=== PATIENT | female | born 1980 | race Caucasian/White ===

== ENCOUNTER 2018-07-09 19:07 | Inpatient (IN) ==
[2018-07-09 20:36] LABS: Hematocrit 31.5 % (35.0-46.0); Hemoglobin 10.4 gm/dL (11.6-15.3); Mean Corpuscular HGB Conc 32.9 % (32.0-36.0); Mean Corpuscular Hemoglobin 27.9 pg (27.0-34.0); Mean Corpuscular Volume 84.9 fL (80.0-100.0); Mean Platelet Volume 11.3 fL (7.0-11.0); Platelet Count 148 th/mm3 (150-450); Red Blood Count 3.72 mil/mm3 (4.00-5.30); Red Cell Distribution Width 14.4 % (11.6-17.2); White Blood Count 13.2 th/mm3 (4.0-11.0)
[2018-07-09 20:46] LABS: Protein/Creatinine Ratio,Urine 0.17 (0.00-0.14)
[2018-07-09 20:50] LABS: Alanine Aminotransferase 11 U/L (10-53); Albumin 2.4 g/dL (3.4-5.0); Anion Gap 11 meq/L (5-15); Aspartate Aminotransferase 13 U/L (15-37); Calcium 8.7 mg/dL (8.5-10.1); Carbon Dioxide 23.9 meq/L (21.0-32.0); Chloride 105 meq/L (98-107); Glomerular Filtration Rate Greater Than 89 mL/min (>89); Glucose,Random 84 mg/dL (74-106); Potassium 3.9 meq/L (3.5-5.1); Sodium 140 meq/L (136-145); Uric Acid 4.9 mg/dl (2.6-6.0)
[2018-07-09 20:53] LABS: Alkaline Phosphatase 102 U/L (45-117); Blood Urea Nitrogen 10 mg/dL (7-18); Total Protein 6.9 g/dL (6.4-8.2)
[2018-07-09] MEDS ORDERED: Zolpidem Tartrate 5 MG Tablet PO PRN (21:07)
[2018-07-09] MEDS ORDERED: Acetaminophen 325 MG Tablet PO PRN (21:07)
--- NOTE | 2018-07-09 21:16 | P.HPOB ---
Patient Name: Dilcia Browne Date of : 82 Patient Status: Emergency Emergency Provider: Han Bravo Date: 07/09/18 20:05 Initialization Date: 07/09/18 20:05 History of Present Illness Primary Care Physician: NOT REQUIRED Dr. Gray Chief Complaint: Decreased movement swelling in her legs hands decreased urine output History of Present Illness: Patient is a 38-year-old white female at 39 weeks previous who wants to but is scheduled for repeat section in 1 week for fear macrosomia. She is complaining of increased swelling in her legs and hands over the last week or so and decreased movement today, says the baby was very active yesterday not so active today, however her NST is is reactive with great accelerations and great variability and she says the baby has been moving since she has been in OB ED. She has not been at bedrest at home. She denies bleeding or leakage of fluid. She does have some abdominal pain some minimal right upper quadrant pain, she has had a headache yesterday but not today, and she has had no visual changes Weeks Gestation:: 39 Para: 1 ( section) : 2 Review of Systems Constitutional: Reports body ache(s), Reports headache(s), Denies anorexia, Denies chills, Denies daytime sleepiness, Denies excessive sweating, Denies fatigue, Denies fever(s), Denies increased appetite, Denies lack of energy, Denies malaise, Denies night sweats, Denies weakness, Denies weight gain, Denies weight loss, Denies other Eyes: Denies blind spots, Denies blurry vision, Denies bulging eyes, Denies change in vision, Denies double vision, Denies discharge, Denies dry eyes, Denies floaters, Denies irritation, Denies itchy eyes, Denies loss of vision, Denies pain, Denies requires corrective lenses, Denies sensitivity to light, Denies other Ears, Nose, Mouth, and Throat: Reports abnormal hearing, Denies bleeding gums, Denies bad breath, Denies change in voice, Denies dental pain, Denies difficulty swallowing, Denies dizziness, Denies dizziness, Denies dry mouth, Denies ear discharge, Denies ear pain, Denies facial pain, Denies headache(s), Denies hearing loss, Denies hoarseness, Denies lip swelling, Denies nosebleed, Denies mouth lesions, Denies mouth pain, Denies nasal congestion, Denies nasal discharge, Denies nasal obstruction, Denies nasal trauma, Denies neck lump, Denies neck pain, Denies nose pain, Denies pain with swallowing, Denies poor balance, Denies post nasal drip, Denies ringing in the ears, Denies sinus pain, Denies sinus pressure, Denies sore throat, Denies throat swelling, Denies tongue swelling, Denies other Cardiovascular: Denies bluish discoloration of hand/feet, Denies chest pain, Denies chest pain at rest, Denies chest pain with activity, Denies excessive sweating, Denies fainting, Denies fast heart rate, Denies foot swelling, Denies generalized swelling, Denies irregular heart rhythm, Denies leg pain with activity, Denies leg sores, Denies leg swelling, Denies lightheadedness, Denies radiating jaw, neck or arm pain, Denies rapid, pounding, or irregular heartbeat , Denies shortness of breath, Denies shortness of breath with activity, Denies shortness of breath when lying down, Denies shortness of breath causing sudden awakening, Denies slow heart rate, Denies other Respiratory: Denies change in phlegm color, Denies chest congestion, Denies cough, Denies coughing up blood, Denies excessive phlegm production, Denies pain on inspiration, Denies pain with cough, Denies shortness of breath, Denies shortness of breath with activity, Denies snoring, Denies stridor, Denies wheezing, Denies other Gastrointestinal: Denies abdominal pain, Denies belching, Denies black, tarry stools, Denies bloating, Denies bright, red blood in stools, Denies change in bowel habits, Denies constant urge to pass stool, Denies change in stools, Denies coffee ground vomit, Denies constipation, Denies cramping, Denies difficulty swallowing, Denies excessive passing of gas, Denies feeling full early, Denies heartburn, Denies incontinent of stools, Denies loose stools, Denies nausea, Denies pain with swallowing, Denies vomiting, Denies vomiting blood, Denies other Genitourinary: Denies abnormal periods, Denies abnormal vaginal bleeding, Denies absent period, Denies bleeding between periods, Denies blood in urine, Denies difficulty starting urination, Denies difficulty urinating, Denies dribbling after urination, Denies frequent nighttime urination, Denies genital itching, Denies genital lesions, Denies heavy periods, Denies hot flashes, Denies light periods, Denies nipple discharge, Denies painful intercourse, Denies painful periods, Denies painful urination, Denies pelvic pain, Denies prolapse symptoms, Denies sexual problems, Denies side pain, Denies urinary incontinence, Denies urinary urgency, Denies vaginal discharge, Denies vaginal dryness, Denies vaginal odor, Denies vaginal itching, Denies other Musculoskeletal: Reports joint swelling, Denies abnormal walking, Denies back pain, Denies body aches, Denies decreased muscle mass, Denies deformity, Denies joint pain, Denies limited joint movement, Denies loss of height, Denies muscle cramps, Denies muscle weakness, Denies neck pain, Denies numbness, Denies radiating pain into limb, Denies stiffness, Denies tingling, Denies other Neurologic: Denies abnormal hearing, Denies abnormal movements, Denies abnormal speech, Denies abnormal walking, Denies behavioral changes, Denies burning sensations, Denies confusion, Denies dizziness, Denies fainting, Denies frequent falls, Denies headache(s), Denies lack of coordination, Denies localized weakness, Denies loss of vision, Denies memory loss, Denies numbness, Denies other visual disturbances, Denies radiating pain, Denies restless legs, Denies convulsions, Denies seizure-like activity, Denies sensory deficit, Denies tingling, Denies tingling/numbness/burning sensations, Denies tremor(s), Denies unsteadiness, Denies weakness, Denies other Psychiatric: Denies abnormal sleep pattern, Denies anxiety, Denies behavioral changes, Denies change in appetite, Denies change in sex drive, Denies confusion , Denies depression, Denies difficulty concentrating, Denies hearing things others do not hear, Denies hopelessness, Denies irritability, Denies lack of enjoyment, Denies memory loss, Denies mood swings, Denies panic attacks, Denies paranoia, Denies seeing things others do not see, Denies sensing things others do not sense, Denies tactile hallucinations, Denies thoughts of hurting/killing others, Denies thoughts of hurting/killing yourself, Denies other Hematologic/Lymphatic: Denies easy bleeding, Denies easy bruising, Denies enlarged lymph nodes, Denies other PMFSH - Social History I have reviewed the patient's Social History: Yes - Tobacco History Smoking Status: Never smoker - Alcohol History How Often Do You Have a Drink Containing Alcohol: Never - Substance Use History Substance History: No History of Abuse - Travel History History of Recent Travel: No Recent Travel in the [place] Within the Last 8 Weeks: No Recent Travel Out of the Country Within the Last 8 Weeks: No Medications and Allergies Allergies Allergy/AdvReac Type Severity Reaction Status Date / Time codeine Allergy Severe HIVES Verified 07/09/18 20:37 ibuprofen Allergy Severe Anaphylaxis Verified 07/09/18 20:37 iodine Allergy Severe RASH Verified 07/09/18 20:37 potassium iodide Allergy Severe RASH Verified 07/09/18 20:37 povidone-iodine Allergy Severe RASH Verified 07/09/18 20:37 sodium iodide Allergy Severe RASH Verified 07/09/18 20:37 sodium iodide Allergy Severe RASH Verified 07/09/18 20:37 Sulfa (Sulfonamide Allergy Severe TACHYCARDIA Verified 07/09/18 20:37 Antibiotics) naproxen Allergy Unknown Anaphylaxis Verified 07/09/18 20:37 Home Medications Medication Instructions Recorded Confirmed Type calcium carbonate [Tums] 400 mg PO Q4-6H PRN 07/09/18 07/09/18 History Exam Vital signs: Vital Signs 07/09/18 19:35 07/09/18 19:55 Temperature 98.4 F Pulse Rate 70 71 Respiratory Rate 18 Blood Pressure 147/76 H 148/76 H Intake & Output 07/09/18 07/09/18 07/10/18 06:59 18:59 06:59 Weight 127.006 kg Narrative: GENERAL: Well-nourished, well-developed obese patient. SKIN: Warm and dry. HEAD: Normocephalic and atraumatic. EYES: No scleral icterus. No injection or drainage. ENT: No nasal drainage noted. Mucous membranes pink. Airway patent. NECK: Supple, trachea midline. No JVD. CARDIOVASCULAR: Regular rate and rhythm without murmurs, gallops, or rubs. RESPIRATORY: Breath sounds equal bilaterally. No accessory muscle use. BREASTS: Bilateral exam showed no masses , no retractions, no nipple discharge. ABDOMEN/GI: Abdomen soft, non-tender, bowel sounds present, no rebound, no guarding , swelling in the pannus Gravid to [39-] weeks size Fundal Height: [40-] GENITOURINARY: External Genitalia: intact and normal in appearance BUS glands: [-] Cervix: [Posterior-] Dilatation: [1-] Effacement: [50-] Station: [-3] Presentation: [vtx-] Membranes: [intact ] Uterine Contractions: [Occasional-] FHT's: Category: [1-] Baseline: [-133] Reactive: [R-] Variability: [mod-] Decels: [0-] EXTREMITIES: No cyanosis ,4+ pitting edema. BACK: Nontender without obvious deformity. No CVA tenderness. NEUROLOGICAL: Awake and alert. Motor and sensory grossly within normal limits. Five out of 5 muscle strength in all muscle groups. Normal speech.DTRs1+ - Constitutional no acute distress Results - Labs CBC & Chem 7: 07/09/18 20:10 07/09/18 20:10 Labs: Urine dip on OB ED shows trace proteinuria otherwise negative Assessment and Plan - Diagnosis (1) Decreased movement affecting management of in third trimester Code(s): O36.8130 - Decreased movements, third trimester, not applicable or unspecified Status: Acute (2) Pedal edema Code(s): R60.0 - Localized edema Status: Acute (3) Gestational hypertension affecting second Code(s): O13.9 - Gestational [-induced] hypertension without significant proteinuria, unspecified trimester Status: Acute (4) Previous section complicating Code(s): O34.219 - Maternal care for unspecified type scar from previous delivery Status: Acute (5) 39 weeks gestation of Code(s): Z3A.39 - 39 weeks gestation of Status: Acute - Plan This multiparous patient at 39 weeks who is a previous presenting with signs and symptoms early preeclampsia, decreased movement. Blood pressures initially 140s over 70s, and subsequent blood pressures are more normal range, she has trace proteinuria in the urine and a urine protein creatinine ratio 0.17, her platelet count is 148,000 which is slightly below normal, liver functions within normal limits, hematocrit is 31% which may indicate some hemolysis. I discussed the case with Dr. Parekh who is consulting practice director tonight and we agreed to admit the patient to the hospital and reevaluate in the morning. Her private OB doctor Dr. Gray is on tomorrow and she may decide patient needs to be delivered on that day depending on her signs symptoms and laboratory Discharge Plan - Physicians Team ED Provider: Han Bravo Primary Care Provider: NOT REQUIRED, - Rxs /Orders / Referrals /Forms Prescriptions: No Action calcium carbonate [Tums] 200 mg calcium (500 mg) Tablet,Chewable 400 mg PO Q4-6H PRN (Reason: Heartburn) - Discharge Instructions Print Language: Lao
[2018-07-10 05:58] LABS: Hematocrit 31.3 % (35.0-46.0); Hemoglobin 10.3 gm/dL (11.6-15.3); Mean Corpuscular HGB Conc 32.7 % (32.0-36.0); Mean Corpuscular Hemoglobin 28.2 pg (27.0-34.0); Mean Platelet Volume 11.1 fL (7.0-11.0); Platelet Count 147 th/mm3 (150-450); Red Blood Count 3.64 mil/mm3 (4.00-5.30); Red Cell Distribution Width 14.4 % (11.6-17.2); White Blood Count 13.7 th/mm3 (4.0-11.0)
[2018-07-10 06:20] LABS: Albumin 2.3 g/dL (3.4-5.0); Anion Gap 8 meq/L (5-15); Blood Urea Nitrogen 10 mg/dL (7-18); Calcium 8.4 mg/dL (8.5-10.1); Carbon Dioxide 25.8 meq/L (21.0-32.0); Chloride 106 meq/L (98-107); Glomerular Filtration Rate Greater Than 89 mL/min (>89); Glucose,Random 73 mg/dL (74-106); Potassium 3.7 meq/L (3.5-5.1); Sodium 140 meq/L (136-145)
[2018-07-10 06:22] LABS: Alanine Aminotransferase 10 U/L (10-53); Aspartate Aminotransferase 11 U/L (15-37)
[2018-07-10 06:27] LABS: Alkaline Phosphatase 91 U/L (45-117); Total Protein 6.3 g/dL (6.4-8.2); Uric Acid 4.9 mg/dl (2.6-6.0)
[2018-07-10] MEDS ORDERED: Citric Acid/Sodium Citrate Liq 30 ML UDC PO SCH (06:45)
[2018-07-10] MEDS ORDERED: ceFAZolin 2 GM Premix Inj 2 GM/50 ML PIGGYBACK IV.SIG SCH (07:00)
[2018-07-10] MEDS ORDERED: Morphine Sulfate PF Inj 5 MG/10 ML Ampul ONE (07:02)
[2018-07-10] MEDS ORDERED: Phenylephrine/NS 1000 MCG/10ML Syringe IV.PUSH ONE (07:30)
[2018-07-10] MEDS ORDERED: Sodium Chlor 0.9% Inj 500 ML IV.CONT ONE (07:30)
[2018-07-10] MEDS ORDERED: fentaNYL Citrate Inj 250 MCG/5 ML Ampul ONE (07:59)
[2018-07-10] MEDS ORDERED: Simethicone 80 MG Chew Tablet PO PRN (08:35)
--- NOTE | 2018-07-10 08:42 | P.OBDELI ---
Procedure Note Performed by: Dolores Gray MD Procedure: Repeat Low Transverse Section Indication for Delivery: Desired elective repeat , Other ( induced hypertension, unfavorable cervix for induction) Informed Consent Obtained: For anesthesia, For procedure Confirmed Correct: Patient, Procedure, Site, Time-out taken Anesthesia: Spinal Medication Prior to Procedure: As documented in eMAR Monitoring During Procedure: Blood pressure monitoring, front desk monitor, Pulse oximetry Urinary Catheter: Inserted using sterile technique, To dependent drainage Sterile Preparation: Duraprep, In usual fashion, With drapes to expose affected area Position: Supine with wedge to right side - Operative Features Skin Incision: Pfannenstiel Uterine Incision: Low transverse w/knife / blunt ext Membranes Ruptured: Artificially, Amount of liquid (moderate), Appearance of fluid (clear) Presentation: Vertex Status of Infant: Viable, Umbilical cord (nuchal x 1 clamped & cut after delivery of head), Nursery present Placenta Delivered: Intact Medications: Antibiotics (Ancef 2G IV preop) Estimated blood loss (mL): 500 Procedure Tolerated: Well Maternal Condition: Stable Baby Condition: Stable - Infant Infant: Male Male A Delivery Date: 07/10/18 Delivery Time: 07:57 Weight: 3.827 kg Delivery of : Umbilical cord (nuchal x 1 clamped & cut) score (1 min): 8 score (5 min): 9
[2018-07-10] MEDS ORDERED: Oxytocin 30 Units/500ml Premix 30 UNITS/500 ML BAG IV.SIG ONE (09:00)
--- NOTE | 2018-07-10 09:38 | MP ---
cc: Dolores Gray MD DATE OF OPERATION: 07/10/2018 PREOPERATIVE DIAGNOSES: 1. Aguilar intrauterine at 39 weeks and 4 days. 2. History of . 3. -induced hypertension. 4. Desired elective repeat . POSTOPERATIVE DIAGNOSES: 1. Aguilar intrauterine at 39 weeks and 4 days. 2. History of . 3. -induced hypertension. 4. Desired elective repeat . 5. Postoperative day number zero. INDICATIONS: Dilcia Browne is a 38-year-old 2, now para 2-0-0-2, who was scheduled for repeat at her due date which would have been this upcoming , but came into the hospital on Tuesday night, 07/09/2018, for complaint of decreased movement. On hospital evaluation, she had reactive NST but her blood pressures were found to be mildly elevated with trace proteinuria on her urine dip. She was admitted for preeclampsia workup, which was ruled out; but due to elevated blood pressures, decreased movement, and term status, it was discussed with the patient the options including induction or a repeat . She desired a repeat as she was very unfavorable for induction. As such, she was taken for procedure. PROCEDURE PERFORMED: Repeat low transverse delivery. SURGEON: Dolores Gray MD. TYPE OF ANESTHESIA: Spinal. ESTIMATED BLOOD LOSS: 500 mL. IV FLUID REPLACEMENT: 1500 mL. URINE OUTPUT: See anesthesia record. Urine was clear in the Farah bag at the end of the procedure. PROPHYLAXIS: Ancef 2 grams IV was given preoperatively. COMPLICATIONS: None. COUNTS: Sponge, lap, instrument, and needle counts were correct x 2 at the conclusion of the procedure. INTRAOPERATIVE FINDINGS: A vigorous viable male infant. There was a nuchal cord x 1, which was clamped and cut prior to delivery. was immediately crying upon delivery. Apgars of 8 and 9 and weight of 8 pounds 7 ounces. The amniotic fluid was clear. Uterus was not exteriorized due to maternal discomfort during the procedure, so internal anatomy was not fully evaluated. SPECIMEN: None. PROCEDURE IN DETAIL: After reviewed and the informed consent, the patient was taken to the operating suite where timeout was performed to identify the patient, planned procedure, any any known allergies to drugs or drug products. The patient was then placed sitting up on the exam table and spinal anesthesia was administered without difficulty and found to be adequate. The patient was then placed in dorsal supine position with a bump under her right side. Abdomen and perineum were prepped and draped in normal sterile fashion. Farah catheter was placed using sterile technique. A Pfannenstiel-type skin incision was made in the area of the patient's previous scar. This was carried down to the underlying layer of fascia with the Bovie. The fascia was incised in the midline. Incision was extended laterally with sharp dissection using Mckenna scissors. Superior aspect of the fascial incision was elevated with Maksim clamps and the rectus muscles were dissected off sharply with Mckenna scissors. Kochers were then moved inferiorly and again rectus muscles were dissected off sharply with Mckenna scissors. The rectus muscles were then in the midline. Peritoneum was identified and entered bluntly with surgeon's index finger. The incision was extended with good visualization of intra-abdominal contents. A low transverse uterine incision was made with the scalpel. The incision was extended bluntly. 's head was grasped and flexed out through the incision. A nuchal cord was encountered. This was doubly clamped and cut. With gentle maneuvering, the rest of the 's body readily delivered. The was immediately crying upon delivery and nursery staff was present for evaluation. The was then handed off to the awaiting nursery staff. The placenta was delivered with fundal massage and cord traction. The uterus was not exteriorized, but it was cleared of all clots and debris with sterile moist lap sponges. The hysterotomy was then repaired in a double-layer using #1 chromic, first in a running locked fashion and then in an imbricating layer. Excellent hemostasis was noted. Irrigation with suction of the pelvis was performed. A layer of Interceed was placed over the prior repaired hysterotomy. The peritoneum was closed in a running layer was 2-0 chromic. Fascia was closed in a running layer with #1 Vicryl. Subcutaneous tissue was copiously irrigated with warm sterile saline, and hemostasis was ensured with the Bovie. Two layers of interrupted sutures using 2-0 chromic were used to close the subcutaneous tissue layer as it was very deep. The skin was then cleaned and dried and closed in a subcuticular fashion with 4-0 Monocryl. Steri-Strips were placed, as was a standard dressing. The procedure concluded at this point. The patient tolerated the procedure well without complications. DISPOSITION: The patient's estimated length of stay is 2-3 postoperative days. Infant is nursery status. MD MERISSA Cordon/rodrick , 08:48 AM , 09:02 AM DELFINA
[2018-07-10] MEDS ORDERED: Oxytocin 30 Units/500ml Premix 30 UNITS/500 ML BAG IV.SIG PRN (13:36)
[2018-07-10] MEDS ORDERED: Naloxone Inj 0.4 MG/ML Vial IV.PUSH PRN (16:49)
[2018-07-10] MEDS: Senna/Docusate Sodium 8.6/50 MG Tablet PO SCH (21:45)
[2018-07-10 23:21] LABS: Amphetamine Screen,Urine Neg (Neg); Barbiturate Screen,Urine Neg (Neg); Cannabinoid Screen,Urine Neg (Neg); Cocaine Screen,Urine Neg (Neg)
[2018-07-10 23:25] LABS: Opiate Screen,Urine Neg (Neg)
[2018-07-11 05:56] LABS: Baso % (Auto) 0.2 % (0.0-2.0); Eos % (Auto) 0.2 % (0.0-4.0); Hematocrit 28.8 % (35.0-46.0); Hemoglobin 9.5 gm/dL (11.6-15.3); Lymph # (Auto) 2.5 th/mm3 (1.0-4.8); Lymph % (Auto) 15.6 % (9.0-44.0); Mean Corpuscular HGB Conc 32.9 % (32.0-36.0); Mean Corpuscular Hemoglobin 28.2 pg (27.0-34.0); Mean Corpuscular Volume 85.6 fL (80.0-100.0); Mean Platelet Volume 11.1 fL (7.0-11.0); Mono # (Auto) 0.8 th/mm3 (0.0-0.9); Mono % (Auto) 4.8 % (0.0-8.0); Neut # (Auto) 12.7 th/mm3 (1.8-7.7); Neut % (Auto) 79.2 % (16.0-70.0); Platelet Count 150 th/mm3 (150-450); Red Blood Count 3.36 mil/mm3 (4.00-5.30); Red Cell Distribution Width 14.7 % (11.6-17.2)
--- NOTE | 2018-07-11 07:08 | P.PNOB ---
Subjective Post op day: 1 Interval history: doing well. Seen in nursery while baby getting bath. She has voided, walking around unit. PAin well controlled w just tylenol Objective Vital Signs/I&O: Vital Signs 07/10/18 08:45 07/10/18 09:05 07/10/18 09:15 Temperature 98.2 F Pulse Rate 63 69 66 Respiratory Rate 18 18 18 Blood Pressure 135/71 114/57 L 141/70 H 07/10/18 09:30 07/10/18 09:31 07/10/18 10:00 Temperature 97.7 F 98.4 F Pulse Rate 62 54 L Respiratory Rate 18 16 Blood Pressure 100/66 147/75 H 07/10/18 11:39 07/10/18 14:30 07/10/18 20:00 Temperature 98.0 F 98.2 F 98.1 F Pulse Rate 73 96 H 78 Respiratory Rate 17 18 18 Blood Pressure 114/60 143/73 H 114/61 07/10/18 23:48 07/11/18 02:53 07/11/18 03:00 Temperature 98.2 F 98.1 F Pulse Rate 67 59 L 96 H Respiratory Rate 18 18 Blood Pressure 109/59 L 111/65 143/70 H 07/11/18 03:12 07/11/18 03:15 Temperature Pulse Rate 72 63 Respiratory Rate 24 20 Blood Pressure 135/64 119/69 Intake & Output 07/10/18 07/11/18 07/11/18 18:59 06:59 18:59 Intake Total 100 / 100 Balance 100 / 100 Intake: IV 100 / 100 Ofirmev Inj 1,000 mg In 100 ml 100 / 100 @ 400 mls/hr IV.SIG Q6H [facility] Rx# :[id number] Result Diagrams: 07/11/18 05:17 07/10/18 05:00 Objective Remarks: GENERAL: Well-nourished, well-developed patient. CARDIOVASCULAR: Regular rate and rhythm without murmurs, gallops, or rubs. RESPIRATORY: Breath sounds equal bilaterally. No accessory muscle use. ABDOMEN/GI: Abdomen soft, non-tender, bowel sounds present. Incision: dressing Clean, dry and intact. Fundus: Firm, non-tender at umbilicus. GENITOURINARY: Light to moderate bleeding. EXTREMITIES: No cyanosis, 1+ edema, non-tender, without signs of DVT. Medications and IVs: Active Medications Diphenhydramine HCl (Benadryl Inj) 25 mg IV.PUSH Q6H PRN PRN Reason: MILD TO MODERATE ITCHING Stop: 07/11/18 16:48 Diphenhydramine HCl (Benadryl) 50 mg PO Q6H PRN PRN Reason: MILD TO MODERATE ITCHING Stop: 07/11/18 16:48 Diphtheria/Pertussis/Tetanus Vacc (Boostrix Vaccine Inj) 0.5 ml IM .ONCE ONE Stop: 07/11/18 16:01 Lactated Ringer's (Lr 1000 Ml Inj) 1,000 mls @ 100 mls/hr IV.CONT .Q10H RONY Stop: 07/11/18 09:35 Oxytocin (Pitocin 30 Units/Ns 500 Ml Premix) 30 units in 500 mls @ 100 mls/hr IV.SIG UNSCH PRN PRN Reason: Heavy bleeding Acetaminophen (Ofirmev Inj) 1,000 mg in 100 mls @ 400 mls/hr IV.SIG Q6H RONY Stop: 07/11/18 08:14 Last Admin: 07/10/18 21:46 Dose: 400 mls/hr Measles/Mumps/Rubella Vaccine Live (M-M-R Ii Vaccine Inj) 0.5 ml SQ .ONCE ONE Stop: 07/11/18 16:01 Miscellaneous Information (Misc Nursing Information) 1 each OTHER UNSCH PRN PRN Reason: SEE LABEL COMMENTS Stop: 07/11/18 16:48 Miscellaneous Information ([facility] Nursing Information) 1 each OTHER UNSCH PRN PRN Reason: SEE LABEL COMMENTS Stop: 07/11/18 16:48 Naloxone HCl (Narcan Inj) 0.4 mg IV.PUSH UNSCH PRN PRN Reason: SEE LABEL COMMENTS Stop: 07/11/18 16:48 Ondansetron HCl (Zofran Inj) 4 mg IV.PUSH Q6H PRN PRN Reason: NAUSEA OR VOMITING Last Admin: 07/10/18 13:24 Dose: 4 mg Senna/Docusate Sodium (Gia-Colace) 2 tab PO Q12H RONY Last Admin: 07/10/18 21:45 Dose: 2 tab Simethicone (Mylicon Chew) 80 mg PO QID PRN PRN Reason: FLATULENCE Sodium Chloride (Ns Flush) 2 ml IV.FLUSH BID RONY Last Admin: 07/10/18 21:45 Dose: 2 ml Sodium Chloride (Ns Flush) 2 ml IV.FLUSH PRN PRN PRN Reason: FLUSH AFTER USING IV ACCESS Zolpidem Tartrate (Ambien) 5 mg PO HS PRN PRN Reason: INSOMNIA Assessment and Plan - Plan POD 1 rcd for pih r/o for pre e, bp nl to mild pod1 cont routine care, ambulate, shower then remove dressing Tylenol extra strength for pain due to allergies dispo home pod 2-3
[2018-07-11] MEDS: Senna/Docusate Sodium 8.6/50 MG Tablet PO SCH ×2 (11:56→22:39)
[2018-07-11] MEDS: Acetaminophen 325 MG Tablet PO PRN ×2 (14:59→20:45)
[2018-07-11] MEDS ORDERED: Diphtheria/Tetanus/Pertussis Vaccine Inj 0.5 ML Syringe IM ONE (16:00)
[2018-07-11] MEDS ORDERED: Measles/Mumps/Rubella Vaccine Inj 0.5 ML Vial SQ ONE (16:00)
[2018-07-11 20:19] VITALS: RESP 18
[2018-07-12] MEDS: Acetaminophen 325 MG Tablet PO PRN ×2 (03:04→09:23)
--- NOTE | 2018-07-12 08:32 | P.PNOB ---
Subjective Post op day: 2 Interval history: doing well, wants to go home today, circ done Objective Vital Signs/I&O: Vital Signs 07/11/18 20:00 Temperature 98.3 F Pulse Rate 73 Respiratory Rate 18 Blood Pressure 142/64 H Result Diagrams: 07/11/18 05:17 07/10/18 05:00 Objective Remarks: GENERAL: Well-nourished, well-developed patient. CARDIOVASCULAR: Regular rate and rhythm without murmurs, gallops, or rubs. RESPIRATORY: Breath sounds equal bilaterally. No accessory muscle use. ABDOMEN/GI: Abdomen soft, non-tender, bowel sounds present. Incision: Clean, dry and intact. Fundus: Firm, non-tender at umbilicus. GENITOURINARY: Light to moderate bleeding. EXTREMITIES: No cyanosis or edema, non-tender, without signs of DVT. Medications and IVs: Active Medications Acetaminophen (Tylenol) 650 mg PO Q6H PRN PRN Reason: PAIN 1-10 AND/OR FEVER >101F Last Admin: 07/12/18 03:04 Dose: 650 mg Oxytocin (Pitocin 30 Units/Ns 500 Ml Premix) 30 units in 500 mls @ 100 mls/hr IV.SIG UNSCH PRN PRN Reason: Heavy bleeding Ondansetron HCl (Zofran Inj) 4 mg IV.PUSH Q6H PRN PRN Reason: NAUSEA OR VOMITING Last Admin: 07/10/18 13:24 Dose: 4 mg Senna/Docusate Sodium (Gia-Colace) 2 tab PO Q12H [facility] Last Admin: 07/11/18 22:39 Dose: Not Given Simethicone (Mylicon Chew) 80 mg PO QID PRN PRN Reason: FLATULENCE Sodium Chloride (Ns Flush) 2 ml IV.FLUSH BID [facility] Last Admin: 07/12/18 00:25 Dose: Not Given Sodium Chloride (Ns Flush) 2 ml IV.FLUSH PRN PRN PRN Reason: FLUSH AFTER USING IV ACCESS Zolpidem Tartrate (Ambien) 5 mg PO HS PRN PRN Reason: INSOMNIA Assessment and Plan - Plan POD 2 rcd for pih r/o for pre e, bp nl to mild pod2 cont routine care, ambulate, shower Tylenol extra strength for pain due to allergies dispo home pod 2-3 Discharge Planning: routine - Attending Attestation pt seen by me
[2018-07-12 08:46] VITALS: BP 137/75; PULSE 84; TEMP 97.9
--- NOTE | 2018-07-12 11:22 | US ---
EXAM DATE: 07/12/2018 11:16 AM EDT AGE/SEX: 38 years / Female INDICATIONS: Left leg swelling. CLINICAL DATA: This is the patient's initial encounter. Patient reports that signs and symptoms have been present for 1 day and indicates a pain score of 1/10. MEDICAL/SURGICAL HISTORY: . section. COMPARISON: No prior exams available for comparison. TECHNIQUE: Venous ultrasound of both lower extremities was performed from the inguinal ligament to t he proximal calf. Real-time, color Doppler and spectral tracing, compression and augmentation techni ques were used. FINDINGS: Focal region of thrombus in the greater saphenous vein in the medial to distal thigh. There is normal compressibility of the deep venous system from the inguinal region to the proximal calf. No echogenic clot is seen in the lumen of the common femoral, femoral, popliteal, and posterior tibia l veins. There is a normal response of the venous system to proximal and distal augmentation and res piration. CONCLUSION: 1. No sonographic evidence for left lower extremity DVT. 2. Focal thrombophlebitis of the greater saphenous vein in the mid to distal thigh. Electronically signed by: Efren Morris MD 07/12/2018 11:21 AM EDT
== END 2018-07-12 13:52 | disposition home or self-care (01) ==
LOC: HOBED 19:07 → H2E 21:15 → H1EA 07-10 09:55
PROVIDERS: ADMIT Obstetrics & Gynecology; ATTEND Obstetrics & Gynecology